=== PATIENT | male | born 1945 | race Caucasian/White ===

== ENCOUNTER 2019-10-19 08:15 | Outpatient (CLI) | payer MEDICARE, BC, OTHER, SELFPAY ==
--- NOTE | 2019-10-19 11:00 | NEURO_ITS ---
Patient Number: [id number] Impression: # Complains of numbness of hands and feet. # Right Carpal Tunnel Syndrome of moderate degree. # Left evolving Carpal Tunnel Syndrome. # Normal nerve conduction study of lower extremities. # Normal needle/EMG exam. Nerve Conduction Studies Anti Sensory Summary Table Stim Site NR Peak (ms) P-T Amp (?V) Site1 Site2 Delta-P (ms) Dist (cm) Rodriguez (m/s) Left Median Anti Sensory (2-3nd Digit) Wrist 3.3 27.7 Wrist 2-3nd Digit 3.3 14.0 42 Wrist 3.2 36.0 Wrist 2-3nd Digit 3.3 14.0 42 Right Median Anti Sensory (2-3nd Digit) Wrist 4.1 34.3 Wrist 2-3nd Digit 4.1 14.0 34 Wrist 4.6 11.6 Wrist 2-3nd Digit 4.1 14.0 34 Left Radial Anti Sensory (Base 1st Digit) Wrist 2.6 14.5 Wrist Base 1st Digit 2.6 0.0 Right Radial Anti Sensory (Base 1st Digit) Wrist 2.4 11.7 Wrist Base 1st Digit 2.4 0.0 Left Sup Fibular Anti Sensory (Ant Lat Mall) 14 cm 3.6 17.8 14 cm Ant Lat Mall 3.6 16.0 44 Right Sup Fibular Anti Sensory (Ant Lat Mall) 14 cm 3.2 11.4 14 cm Ant Lat Mall 3.2 16.0 50 Left Sural Anti Sensory (Lat Mall) Calf 3.8 30.4 Calf Lat Mall 3.8 16.0 42 Right Sural Anti Sensory (Lat Mall) Calf 3.5 10.6 Calf Lat Mall 3.5 16.0 46 Left Ulnar Anti Sensory (5th Digit) Wrist 2.5 22.5 Wrist 5th Digit 2.5 14.0 56 Right Ulnar Anti Sensory (5th Digit) Wrist 2.8 32.1 Wrist 5th Digit 2.8 14.0 50 Motor Summary Table Stim Site NR Onset (ms) O-P Amp (mV) Site1 Site2 Delta-0 (ms) Dist (cm) Rodriguez (m/s) Left Median Motor (Abd Poll Brev) Wrist 3.8 2.3 Elbow Wrist 5.7 29.0 51 Elbow 9.5 2.0 Right Median Motor (Abd Poll Brev) Wrist 5.5 0.4 Elbow Wrist 5.2 27.0 52 Elbow 10.7 1.0 Left Peroneal Motor (Vastus Med) Ankle 4.5 1.9 Popit Ankle 8.7 39.0 45 Popit 13.2 1.1 Right Peroneal Motor (Vastus Med) Ankle 4.4 1.7 Popit Ankle 8.5 40.0 47 Popit 12.9 1.5 Left Tibial Motor (Abd Starr Brev) Ankle 5.2 1.0 Knee Ankle 9.6 43.0 45 Knee 14.8 1.2 Right Tibial Motor (Abd Starr Brev) Ankle 5.0 2.3 Knee Ankle 10.2 46.0 45 Knee 15.2 1.2 Left Ulnar Motor (Abd Dig Minimi) Wrist 2.3 6.1 A Elbow Wrist 5.5 31.0 56 A Elbow 7.8 5.3 Right Ulnar Motor (Abd Dig Minimi) Wrist 3.0 4.9 A Elbow Wrist 5.1 29.0 57 A Elbow 8.1 3.4 F Wave Studies NR F-Lat (ms) L-R F-Lat (ms) Left Median (Mrkrs) (Abd Poll Brev) 32.62 2.23 Right Median (Mrkrs) (Abd Poll Brev) 34.85 2.23 Left Peroneal (Mrkrs) (EDB) 56.04 0.25 Right Peroneal (Mrkrs) (EDB) 55.79 0.25 Left Tibial (Mrkrs) (Abd Hallucis) 56.12 0.35 Right Tibial (Mrkrs) (Abd Hallucis) 56.47 0.35 Left Ulnar (Mrkrs) (Abd Dig Min) 33.07 0.07 Right Ulnar (Mrkrs) (Abd Dig Min) 33.14 0.07 EMG Side Muscle Nerve Root Ins Act Fibs Amp Dur Recrt Comment Right 1stDorInt Ulnar C8-T1 Nml Nml Nml Nml Nml Right Ext Indicis Radial (Post Int) C7-8 Nml Nml Nml Nml Nml Right Ext Digitorum Radial (Post Int) C7-8 Nml Nml Nml Nml Nml Right BrachioRad Radial C5-6 Nml Nml Nml Nml Nml Right PronatorTeres Median C6-7 Nml Nml Nml Nml Nml Right Abd Poll Brev Median C8-T1 Nml Nml Nml Nml Nml Right AntTibialis Dp Br Fi
== END 2019-10-19 08:16 | disposition home or self-care (01) ==
PROVIDERS: PCP Internal Medicine; Visit Provider Internal Medicine
DX: G56.03 Carpal tunnel syndrome, bilateral upper limbs (principal)
CPT/HCPCS: 95886; 95913

== ENCOUNTER 2020-01-23 00:22 | Outpatient (CLI) | payer MEDICARE, BC, OTHER, SELFPAY ==
[2020-01-23 19:58] LABS: SARS-CoV-2 RNA PCR Negative
== END 2020-01-23 00:23 | disposition home or self-care (01) ==
LOC: ANHCOVIDDT 00:24
PROVIDERS: PCP Internal Medicine; Visit Provider Plastic Surgery
DX: Z01.812 Encounter for preprocedural laboratory examination (principal); Z20.828 Contact with and (suspected) exposure to other viral communicable diseases
CPT/HCPCS: 87635; C9803; U0003

== ENCOUNTER 2020-01-25 02:35 | Day surgery (SDC) | payer MEDICARE, BC, OTHER, SELFPAY ==
[2020-01-13 12:50] VITALS: BMI 35.9
[2020-01-25] VITALS (7 sets, daily range): BP systolic 135–159; BP diastolic 59–71; PULSE 54–67; RESP 16; TEMP 36.5; O2SAT 95–98
--- NOTE | 2020-01-25 07:21 | WPDHPUPDATE1 ---
History and Physical Update Update Date/Time: 01/25/20 07:21 History and Physical has been reviewed, including an updated exam of the patient. There are NO changes in the patient's condition. Risks, benefits, and alternatives have been discussed and questions answered. Patient agrees to proceed with procedure.
[2020-01-25] MEDS: LIDO 1%/EPINEPHRINE 1:100,000 20 ML VIAL 10 ML INFILTRATE (08:59)
--- NOTE | 2020-01-25 09:47 | PM.OP ---
Procedure Note - Brief Procedure Note - Brief Date of procedure: 01/25/20 Pre-op diagnosis: Left Carpal Tunnel Syndrome Post-op diagnosis: same Procedure performed: L OCTR Anesthesia: local Surgeon: Stiven Gunderson MD Estimated blood loss (mL): 3 Tourniquet time (min): 0 Drains: No Packing: No Pathology: none sent Complications: No immediate complications Condition: stable Disposition: same day
--- NOTE | 2020-01-25 09:48 | PM.PROC ---
Procedure Note - Detailed Date of procedure: 01/25/20 Pre-op diagnosis: Left Carpal Tunnel Syndrome Post-op diagnosis: same Procedure performed: Left open carpal tunnel release Description of procedure: The left hand was marked in the holding area. The patient was taken to the operating room where he was placed supine on the operating table. A time-out was held and confirmed. The site was remarked and prepped and draped in usual fashion. He was locally infiltrated with 1% lidocaine with epinephrine. No tourniquet was used. The incision was made as marked and dissection was carried through the subcutaneous tissue to the palmar fascia. This and the carpal ligament were incised with a 15. Blade. Under 3 point retraction the ligament was divided distally and proximally to completely release it. There was no unusual anatomy noted. The wound was closed with interrupted 4-0 nylon suture. A small bandage was applied and he is discharged with instructions in wound care and follow-up has a prescription for hydrocodone 5/325 8. Surgeon: Stiven Gunderson MD Estimated blood loss (mL): 3 Tourniquet time (min): 0 Drains: No Packing: No Complications: No immediate complications Condition: stable Disposition: same day
== END 2020-01-25 10:28 | disposition home or self-care (01) ==
PROVIDERS: PCP Internal Medicine; Visit Provider Plastic Surgery
PROC: (CPT 64721; principal; 2020-01-25 09:00)
DX: G56.02 Carpal tunnel syndrome, left upper limb (principal)
CPT/HCPCS: 64721; A9270

== ENCOUNTER 2021-02-04 01:02 | Day surgery (SDC) | payer MEDICARE, BC, OTHER, SELFPAY ==
[2021-01-21 14:13] VITALS: BMI 34.7
--- NOTE | 2021-02-04 08:41 | WPDANESEPPF ---
Anes - Initial Pre Proc Eval Procedure: Operation Date: 02/04/21 11:30 Proposed Procedures p Screening Colonoscopy - Mick Head MD Date/Time: 02/04/21 08:41 Surgeon: Mick Head MD Pre Op Diagnosis: neoplasm screening Patient Data Age: 76 Gender: M Height: 1.78 m Weight: 110 kg Allergies Allergy/AdvReac Type Severity Reaction Status Date / Time No Known Allergies Allergy Verified 02/04/21 10:33 Home Medications Medication Instructions Recorded Confirmed Type cyanocobalamin (vitamin B-12) 1,000 mcg PO DAILY 08/16/19 02/04/21 History 1,000 mcg tablet nitroglycerin 400 mcg/spray 1 spray TRANSLINGU Q5M PRN 08/16/19 02/04/21 History translingual cyclosporine 0.05 % eye drops in a 1 drop EACH EYE Q12H #6 packet 09/15/19 02/04/21 Rx dropperette levothyroxine 50 mcg tablet 50 mcg PO DAILY #90 tablet 11/22/19 02/04/21 Rx aspirin 325 mg tablet 325 mg PO DAILY #90 tablet 01/16/20 02/04/21 Rx perindopril erbumine 8 mg tablet 8 mg PO DAILY #90 tablet 01/16/20 02/04/21 Rx hydrocodone-acetaminophen 1 tablet PO Q6H PRN #8 tablet 01/25/20 02/04/21 Rx memantine ER 28 mg-donepezil 10 mg 1 cap PO HS #90 ea 02/23/20 02/04/21 Rx capsule sprinkle,ext.release 24 hr triamcinolone acetonide 0.1 % 1 applic TOPICAL BID #80 g 03/26/20 02/04/21 Rx topical cream montelukast 10 mg tablet 10 mg PO DAILY #90 tablet 09/12/20 02/04/21 Rx testosterone 30 mg/actuation (1.5 2 pump TOPICAL DAILY #90 ml 10/29/20 02/04/21 Rx mL) transderm solution metered pump trazodone 100 mg tablet 50 mg PO HS #90 tablet 12/13/20 02/04/21 Rx ibuprofen 800 mg tablet 800 mg PO BID #180 tablet 12/28/20 02/04/21 Rx amlodipine 10 mg tablet 10 mg PO DAILY #90 tablet 01/14/21 02/04/21 Rx atorvastatin 20 mg PO DAILY 01/21/21 02/04/21 History Patient hx anesthesia problems: none Family hx anesthesia problems: none Results Review: All pre-operative results and documents have been reviewed as part of the pre-operative evaluation. [facility] Past Medical History Medical History (Updated 02/04/21 @ 08:43 by Martin Newton MD) Benign essential hypertension CAD in [place] artery Dementia, unspecified, without behavioral disturbance Hx of myocardial infarction Hypertensive heart disease without congestive heart failure Hypothyroidism (acquired) Mixed hyperlipidemia Primary osteoarthritis involving multiple joints Sleep apnea, unspecified Spinal stenosis, lumbar region with neurogenic claudication Surgical History Surgical History (Updated 02/04/21 @ 08:43 by Martin Newton MD) Coronary angioplasty status History of coronary artery stent placement Family History Family History Mother Hypertension Family history of diabetes mellitus in first degree relative Social History Social History Smoking packs per day: 3 Smoking cigarettes per day: 60.0 Years smoked: 25 Smoking pack-years: 75.00 Smoking status: Former smoker Tobacco type: cigarettes Second hand tobacco smoke exposure: No Smoking end date: 05/06/80 Alcohol intake: never Alcohol use details: ONE BEER PER MONTH Substance use: never Substance use type: does not use Living arrangements: with family Spiritual care concerns: No Anes - Eval Final PreProcedure Day of Procedure 02/04/21 08:41 Patient weight: obese Heart: regular rate and rhythm Lungs: clear to auscultation and normal air movement Airway: Mallampati scale class II Neurological: alert and oriented Last oral intake: >/= 8 hours ASA classification: III Emergent: no Anesthetic plan: proceed Anesthesia type and monitoring: general GIVS Results Review: All pre-operative results and documents have been reviewed as part of the pre-operative evaluation. Informed Consent: The patient's anesthetic plan and its attendant risks and benefits were discussed with the patie
[2021-02-04 10:34] VITALS: BP 152/83; PULSE 84; RESP 16; TEMP 36.3; O2SAT 95; BMI 32.1
[2021-02-04] MEDS: LACTATED RINGERS 1,000 ML 150 ML IV CONT (10:45)
--- NOTE | 2021-02-04 11:05 | PM.HPGS ---
History of Present Illness History of Present Illness Consent: Risks, benefits, and alternatives have been discussed and questions answered. Patient agrees to proceed with procedure. Chief complaint: neoplasm screening Narrative: Ramirez Charles is a 76 year old male referred for colon cancer screening. He has had polyps removed in the past Review of Systems Review of Systems: All systems reviewed & are unremarkable except as noted in HPI and below PMFSH Past Medical History Medical History Benign essential hypertension CAD in [place] artery Dementia, unspecified, without behavioral disturbance Hx of myocardial infarction Hypertensive heart disease without congestive heart failure Hypothyroidism (acquired) Mixed hyperlipidemia Primary osteoarthritis involving multiple joints Sleep apnea, unspecified Spinal stenosis, lumbar region with neurogenic claudication Surgical History Surgical History Coronary angioplasty status History of coronary artery stent placement Family History Family History Mother Hypertension Family history of diabetes mellitus in first degree relative Social History Social History Smoking packs per day: 3 Smoking cigarettes per day: 60.0 Years smoked: 25 Smoking pack-years: 75.00 Smoking status: Former smoker Tobacco type: cigarettes Second hand tobacco smoke exposure: No Smoking end date: 05/06/80 Alcohol intake: never Alcohol use details: ONE BEER PER MONTH Substance use: never Substance use type: does not use Living arrangements: with family Spiritual care concerns: No Meds Home Medications and Allergies Home Medications Medication Instructions Recorded Confirmed Type cyanocobalamin (vitamin B-12) 1,000 mcg PO DAILY 08/16/19 02/04/21 History 1,000 mcg tablet nitroglycerin 400 mcg/spray 1 spray TRANSLINGU Q5M PRN 08/16/19 02/04/21 History translingual cyclosporine 0.05 % eye drops in a 1 drop EACH EYE Q12H #6 packet 09/15/19 02/04/21 Rx dropperette levothyroxine 50 mcg tablet 50 mcg PO DAILY #90 tablet 11/22/19 02/04/21 Rx aspirin 325 mg tablet 325 mg PO DAILY #90 tablet 01/16/20 02/04/21 Rx perindopril erbumine 8 mg tablet 8 mg PO DAILY #90 tablet 01/16/20 02/04/21 Rx hydrocodone-acetaminophen 1 tablet PO Q6H PRN #8 tablet 01/25/20 02/04/21 Rx memantine ER 28 mg-donepezil 10 mg 1 cap PO HS #90 ea 02/23/20 02/04/21 Rx capsule sprinkle,ext.release 24 hr triamcinolone acetonide 0.1 % 1 applic TOPICAL BID #80 g 03/26/20 02/04/21 Rx topical cream montelukast 10 mg tablet 10 mg PO DAILY #90 tablet 09/12/20 02/04/21 Rx testosterone 30 mg/actuation (1.5 2 pump TOPICAL DAILY #90 ml 10/29/20 02/04/21 Rx mL) transderm solution metered pump trazodone 100 mg tablet 50 mg PO HS #90 tablet 12/13/20 02/04/21 Rx ibuprofen 800 mg tablet 800 mg PO BID #180 tablet 12/28/20 02/04/21 Rx amlodipine 10 mg tablet 10 mg PO DAILY #90 tablet 01/14/21 02/04/21 Rx atorvastatin 20 mg PO DAILY 01/21/21 02/04/21 History Allergies Allergy/AdvReac Type Severity Reaction Status Date / Time No Known Allergies Allergy Verified 02/04/21 10:33 Vital Signs Vital Signs - 24 hr 02/04/21 10:34 Temperature 36.3 C L Pulse Rate 84 Respiratory Rate 16 Blood Pressure 152/83 H Pulse Oximetry 95 Exam Resp: Auscultation: clear to auscultation bilaterally Cardio: Rate: regular rate Rhythm: regular rhythm GI: GI Palp: Yes Soft to palpation and No Tenderness to palpation present (GI) Assessment and Plan Assessment and plan (1) Colon cancer screening: Code(s): Z12.11 - Encounter for screening for malignant neoplasm of colon Status: Acute Assessment and Plan: Colonoscopy with possible biopsy or polypectomy or cautery o
[2021-02-04] MEDS: SIMETHICONE ORAL SUSPENSION 20 MG/0.3 ML 30 ML BOTTLE 0.6 ML IRRIGATION (11:21)
[2021-02-04 11:35] VITALS: BP 97/54; PULSE 59; RESP 16; O2SAT 94
[2021-02-04 11:45] VITALS: BP 104/50; PULSE 63; RESP 16; O2SAT 93
[2021-02-04 11:55] VITALS: BP 121/73; PULSE 72; RESP 17; O2SAT 95
== END 2021-02-04 12:20 | disposition home or self-care (01) ==
PROVIDERS: PCP Internal Medicine; Visit Provider Internal Medicine Gastroenterology
PROC: 0DJD8ZZ Inspection of Lower Intestinal Tract, Via Natural or Artificial Opening Endoscopic (ICD-10-PCS; CPT 45378; principal; 2021-02-04 11:30)
DX: Z12.11 Encounter for screening for malignant neoplasm of colon (principal); D12.0 Benign neoplasm of cecum; I11.0 Hypertensive heart disease with heart failure; I50.9 Heart failure, unspecified; F03.90 Unspecified dementia, unspecified severity, without behavioral disturbance, psychotic disturbance, mood disturbance, and anxiety; I25.10 Atherosclerotic heart disease of native coronary artery without angina pectoris; E03.9 Hypothyroidism, unspecified; E78.2 Mixed hyperlipidemia; G47.30 Sleep apnea, unspecified; M48.062 Spinal stenosis, lumbar region with neurogenic claudication; Z95.5 Presence of coronary angioplasty implant and graft; Z87.891 Personal history of nicotine dependence; E66.9 Obesity, unspecified; Z68.32 Body mass index [BMI] 32.0-32.9, adult; Z79.82 Long term (current) use of aspirin; Z79.890 Hormone replacement therapy; Z79.891 Long term (current) use of opiate analgesic
CPT/HCPCS: 45385; 88305; J2704; J7120

== ENCOUNTER 2022-01-02 15:20 | Outpatient (RCR) | payer MEDICARE, BC, OTHER, SELFPAY ==
[2022-01-06 16:42] LABS: Testosterone Total 455 ng/dL (250-1100)
== END 2022-04-02 23:59 | disposition home or self-care (01) ==
LOC: ANHGOSHLAB 15:20
PROVIDERS: PCP Family Medicine; Visit Provider Family Medicine
DX: E03.9 Hypothyroidism, unspecified (principal); E29.1 Testicular hypofunction
CPT/HCPCS: 36415; 84402; 84403; 84443

== ENCOUNTER → 2022-07-10 14:59 | Outpatient (CLI) | payer MEDICARE, BC, SELFPAY ==
--- NOTE | ~2022-07-10 | XR_ITS ---
XR lumbar spine min 4V DATE: 07/10/2022 15:14 INDICATION: Low back pain for several years. No injury. TECHNIQUE: AP, lateral, bilateral oblique views, coned lateral lumbosacral view COMPARISON: May 10, 2011 MRI lumbar spine FINDINGS: There is mild levoscoliosis. There is degenerative spurring of the lower thoracic spine. There is degenerative spurring throughout the lumbar and lumbosacral spine, with moderate loss of int erspace height at L2-3 and more severe loss of interspace height at L4-5 and L5-S1. There is prominent degenerative change at the apophyseal joints particularly the lower lumbosacral ar ea with associated grade 1 anterolisthesis at L4-5. No fracture or bone destruction is evident. The included lower thoracic and lumbar pedicles are intac t. The sacroiliac joints are intact. IMPRESSION: Mild levoscoliosis Multilevel degenerative disc disease, greatest at L4-5 and L5-S1 Minimal grade 1 anterolisthesis at L4-5 due to degenerative change at the apophyseal joints Reviewed, dictated and finalized at location L. IMPRESSION: Mild levoscoliosis Multilevel degenerative disc disease, greatest at L4-5 and L5-S1 Minimal grade 1 anterolisthesis at L4-5 due to degenerative change at the apoph yseal joints
== END ==
PROVIDERS: PCP Family Medicine; Visit Provider Family Medicine
DX: M51.37 Other intervertebral disc degeneration, lumbosacral region (principal); M47.816 Spondylosis without myelopathy or radiculopathy, lumbar region
CPT/HCPCS: 72110

== ENCOUNTER 2024-06-22 00:39 | Day surgery (SDC) | payer MEDICARE, BC, OTHER, SELFPAY ==
[2024-06-13 12:17] VITALS: BMI 33.2
--- OUTSIDE RECORDS SUMMARY | 2024-06-22 00:43 | XMS_ITS | Clinical Summary ---
Author Organization [facility] Address [address], [address] [address] Phone Care Team Providers Care Works Manager Name Role Phone Gilbert Carreno DO Unavailable [phone] Allergies No known active allergies Medications testosterone (ANDROGEL) 25 MG/2.5GM (1%) Gel Apply daily. Active aspirin 325 MG Tablet Take 325 mg by mouth daily. Active celecoxib (CELEBREX) 200 MG Capsule Take 200 mg by mouth daily. Active [place]-3 Fatty Acids (OMEGA-3 FISH OIL) 1000 MG Capsule Take by mouth. Take 4 capsules by mouth once daily Active metFORMIN (GLUCOPHAGE) 1000 MG Tablet Take 1,000 mg by mouth daily. Active montelukast (SINGULAIR) 10 MG Tablet Take 10 mg by mouth daily. Active nitroGLYCERIN (NITROLINGUAL) 0.4 MG/SPRAY Solution Take 1 [place] by mouth as needed. Active perindopril (ACEON) 4 MG Tablet Take 4 mg by mouth daily. Active Niacin-Simvasta tin 1000-20 MG TABLET SR 24 HR Take by mouth. Active levothyroxine (SYNTHROID) 50 MCG Tablet Take 50 mcg by mouth daily. Active metoprolol Succinate (TOPROL-XL) 100 MG TABLET SR 24 HR Take 100 mg by mouth daily. Active traZODone (DESYREL) 100 MG Tablet Take 100 mg by mouth nightly. Active acetaminophen (TYLENOL) 500 MG Tablet Take 500 mg by mouth every 4 hours as needed for Pain. Active vitamin b-12 (CYANOCOBALAMIN ) 100 MCG Tablet Take 100 mcg by mouth daily. Active Cholecalciferol (VITAMIN D3 PO) Take by mouth. Active Immunizations Immunization Administration Dates Next Due Covid-19, Mrna, Lnp-s, Pf, 30 Mcg/0.3 Ml Dose (P fizer) 06/22/2020,06/01/2020 Family History Medical History Relation Name Comments Cancer Brother Cancer Father Cancer Mother Diabetes Mother Relation Name Status Comments Brother Father Mother Social History Tobacco Use Types Packs/Day Years Used Date Smoking Tobacco: Former Cigarettes 3 30 0 03/30/1950 - 03/30/1980 Comments:quit 1980 Alcohol Use Standard Drinks/Week Comments Yes 0 (1 standard drink = 0.6 oz pur e alcohol) Sex and Gender Information Value Date Recorded Sex Assigned at Not on file Legal Sex Male 10:14 AM CDT Gender Identity Not on file Sexual Orientation Not on file Occupation Industry Job Start Date Job End Date [employer] Not on file Not on file Not on kelly e Last Filed Vital Signs Vital Sign Reading Time Taken Comments Blood Pressure 160/80 12/13/2015 12:49 PM CDT Pulse 52 12/13/2015 12:49 PM CDT Temperature 36.2 C (97.1 F) 12/13/2015 12:49 PM CDT Respiratory Rate 14 12/13/2015 12:4 9 PM CDT Oxygen Saturation 96% 12/13/2015 12: 49 PM CDT Inhaled Oxygen Concentration - - Weight 107.6 kg (237 lb 3.2 oz) 016 12:49 PM CDT Height 177.8 cm (5' 10 ) 12/13/2015 12: 49 PM CDT Body Mass Index 34.03 12/13/2015 12:49 PM CDT Plan of Treatment Health Maintenance Due Date Last Done Comments Hepatitis C Virus (HCV) Screening 1945 TdaP Immunization 1945 Zoster Immunization (1 of 2) 1993 Respiratory Syncytial Virus (RSV) Immunization (Adult) (1 - 1-dose 75+ series) 2018 Influenza Immunization (#1) 11/22/202309/2019, 01/21/2019, 01/01/2018, Additional history exists SARS-COV-2 Immunization ( season) 2023 02/08/2021, 06/22/2020, 06/01/2020 Pneumococcal Immunization (50+ years) Completed 12/28/2019, 01/21/2017 Pneumococcal Immunization Combined Discontinued 12/28/2019, 01/21/2017 Hepatitis B Immunization Aged Out No longer eligible based on patient's age to complete this topic Meningococcal Immunization (ACWY) Aged Out No longer eligible based on patient's age to complete this topic Rotavirus Immunization Aged Out No lo nger eligible based on patient's age to complete this topic Insurance MEDICARE [facility] Care Teams Works Manager Relationship Specialty Start Date End Date Gilbert Carreno DO Gastroenterology 09/26/15
--- OUTSIDE RECORDS SUMMARY | 2024-06-22 00:43 | XMS_ITS | Encounter Summary ---
Author Organization [facility] Address [facility] [place] [address] Care Team Providers Care Store Manager Name Role Phone Chema Woodruff MD Unavailable [phone] Alok Miller MD Primary Care Provider [facility] Wilfredo Avila MD Primary Care Provider [phone] Fredi Soliman MD Primary Care Provider [phone] Encounter Details Date Type Department Care Team (Latest Contact Info) Description 01/26/[address] [facility] Dorina Pollock MD Social History Tobacco Use Types Packs/Day Years Used Date Smoking Tobacco: Former Cigarettes Smokeless Tobacco: Never Comments:quit in 1980 Alcohol Use Standard Drinks/Week Comments No 0 (1 standard drink = 0.6 oz pur e alcohol) Sex and Gender Information Value Date Recorded Sex Assigned at Not on file Legal Sex Male 2:50 AM CDT Gender Identity Not on file Sexual Orientation Not on file Occupation Industry Job Start Date Job End Date Not on file Not on file Not on file Not on file Not on file Not on file Not on file Not on file documented as of this encounter Plan of Treatment Upcoming Encounters Date Type Department Care Team (Late st Contact Info) Description 06/27/2024 11:45 AM CDT [facility] [address] [place] [id number] Chema Woodruff MD [facility]. [place] [address] [place] [address] documented as of this encounter Visit Diagnoses Not on filedocumented in this encounter Care Teams Store Manager Relationship Specialty Start Date End Date Alok Miller MD [address] [address] PCP - General INTERNAL MEDICINE 08/22/15 03/24/18 Wilfredo Avila MD [address] [address] PCP - General INTERNAL MEDICINE 03/25/18 08/17/19 Fredi Soliman MD [address] [place] [address] PCP - General INTERNAL MEDICINE 08/18/19 11/20/21 Chema Woodruff MD [address] [address] Jeffery Wood Hacker CARDIOVASCULAR DISEASE 08/22/15 documented as of this encounter
--- OUTSIDE RECORDS SUMMARY | 2024-06-22 00:43 | XMS_ITS | Continuity of Care Document ---
Author Organization [facility] Address [address] [place] [address] [address] [place] [address] Phone Care Team Providers Care Ammunition Specialist Name Role Phone Alexis Ng PT Unavailable Unavailable Procedures Procedure Date Therapeutic Activities Neuromuscular Re-Ed Manual Therapy Hot or Cold Pack Therapeutic Activities Neuromuscular Re-Ed Manual Therapy Hot or Cold Pack Therapeutic Activities Neuromuscular Re-Ed Manual Therapy Hot or Cold Pack Progress Note Therapeutic Activities Neuromuscular Re-Ed Manual Therapy Hot or Cold Pack Therapeutic Activities Neuromuscular Re-Ed Manual Therapy Hot or Cold Pack Therapeutic Activities Neuromuscular Re-Ed Manual Therapy Hot or Cold Pack Progress Note Therapeutic Activities Neuromuscular Re-Ed Manual Therapy Hot or Cold Pack Therapeutic Activities Neuromuscular Re-Ed Manual Therapy Hot or Cold Pack Therapeutic Activities Neuromuscular Re-Ed Manual Therapy Hot or Cold Pack Therapeutic Activities Neuromuscular Re-Ed Manual Therapy Hot or Cold Pack Therapeutic Activities Neuromuscular Re-Ed Manual Therapy Hot or Cold Pack Therapeutic Activities Neuromuscular Re-Ed Manual Therapy Hot or Cold Pack Therapeutic Activities Neuromuscular Re-Ed Manual Therapy Hot or Cold Pack Therapeutic Activities Neuromuscular Re-Ed Manual Therapy Hot or Cold Pack Therapeutic Activities Neuromuscular Re-Ed Manual Therapy Hot or Cold Pack Progress Note Therapeutic Activities Neuromuscular Re-Ed Manual Therapy Hot or Cold Pack Therapeutic Activities Neuromuscular Re-Ed Manual Therapy Hot or Cold Pack Therapeutic Activities Neuromuscular Re-Ed Manual Therapy Hot or Cold Pack Therapeutic Activities Neuromuscular Re-Ed Manual Therapy Hot or Cold Pack Electrical Stimulation Therapeutic Activities Neuromuscular Re-Ed Manual Therapy Hot or Cold Pack Therapeutic Activities Neuromuscular Re-Ed Manual Therapy Hot or Cold Pack Therapeutic Activities Neuromuscular Re-Ed Manual Therapy Hot or Cold Pack Therapeutic Activities Neuromuscular Re-Ed Manual Therapy Hot or Cold Pack Therapeutic Activities Neuromuscular Re-Ed Manual Therapy Hot or Cold Pack Doc neg elder mal no plan PT Evaluation Low Complexity Therapeutic Activities Neuromuscular Re-Ed Therapeutic Activities Therapeutic Exercise Therapeutic Activities Therapeutic Exercise Progress Note Therapeutic Activities Therapeutic Exercise Therapeutic Activities Therapeutic Exercise Therapeutic Activities Therapeutic Exercise Therapeutic Exercise Therapeutic Activities Therapeutic Activities Therapeutic Exercise Therapeutic Activities Therapeutic Exercise Therapeutic Activities Therapeutic Exercise Therapeutic Activities Therapeutic Exercise Therapeutic Activities Therapeutic Exercise Neuromuscular Re-Ed Doc neg elder mal no plan PT Evaluation Moderate Complexity Therapeutic Activities Advance Directives Directive Yes / No Effective Date File Name No Information Encounters Encounter Description Practice Location Reason(s) For Visit Diagnoses Date Provider Providers Copied on Encounter [facility], [id number], tel:[phone] [facility] No Information Berenice Espinoza. . Referring Provider: Grey Johnston, [address] [facility], [place], [address]. tel:[phone] [facility] [place] [place] [address], [place], [place], [id number], tel:[phone] [facility] No Information Berenice Espinoza. . Referring Provider: Grey Johnston [address] [place] [address], [address]. tel:[phone] [place] [address] [place] [address], [place], [place], [id number], tel:[phone] [facility] No Information Berenice Espinoza. . Referring Provider: Grey Johnston, [address] [place] [address], [address]. tel:[phone] [place] [address] [place] [address], [place], [place], [id number], [place] tel:[phone] [facility] No Information Berenice Espinoza. . Referring Provider: Grey Johnston, [address] [place] [address], [address]. tel:[phone] [place] [address] [place] [address], [place], [place], [id number], [place] tel:[phone] [facility] No Information Berenice Espinoza. . Referring Provider: Grey Johnston, [address] [place] [address], [address]. tel:[phone] [place] [address] [place] [address], [place], [place], [id number], [place] tel:[phone] [facility] No Information Berenice Espinoza. . Referring Provider: Grey Johnston [address] [place] [address], [address]. tel:[phone] [place] [address] [address] [address], [place], [place], [id number], [place] tel:[phone] [facility] No Information Berenice Espinoza. . Referring Provider: Grey Johnston [address] [place] [address], [address]. tel:[phone] [place] [address], [address] [facility] 300, [place], [place], [id number], [place] tel:[phone] [facility] No Information Berenice Espinoza. . Referring Provider: Grey Johnston, [address] [place] [address], [address]. tel:[phone] [place] [address] [address] [facility], [place], [id number], [place] tel:[phone] [facility] No Information Berenice Alexis. . Referring Provider: Grey Johnston, [address] [place] [address], [address]. tel:[phone] [place] [address] [address] [facility], [place], [address], [place] tel:[phone] [facility] No Information Berenice Alexis. . Referring Provider: Grey Johnston, [address] [place] [address], [address]. tel:[phone] [place] [address] [address] [address], [place], [place], [address], [place] tel:[phone] [facility] No Information Berenice Alexis. . Referring Provider: Grey Johnston [address] [place] [address], [address]. tel:[phone] [place] [address] [address] [address], [place], [place], [id number], [place] tel:[phone] [facility] No Information Berenice Espinoza. . Referring Provider: Grey Johnston [address] [place] [address], [address]. tel:[phone] [place] [address] [address] [facility], [place], [address], [place] tel:[phone] [facility] No Information Berenice Espinoza. . Referring Provider: Grey Johnston, [address] [place] [address], [address]. tel:[phone] [place] [address] [address] [facility], [place], [id number], [place] tel:[phone] [facility] No Information Berenice Alexis. . Referring Provider: Grey Johnston, [address] [place] [address], [address]. tel:[phone] [place] [address] [facility], [place], [place], [id number], tel:[phone] [facility] No Information Berenice Alexis. . Referring Provider: Grey Johnston, [address] [place] [address], [address]. tel:[phone] [place] [address] [address] [facility], [place], [address], [place] tel:[phone] [facility] No Information Berenice Alexis. . Referring Provider: Grey Johnston [address] [place] [address], [address]. tel:[phone] [place] [address] [address] [address], [place], [place], [address], [place] tel:[phone] [facility] No Information Berenice Alexis. . Referring Provider: Grey Johnston [address] [place] [address], [address]. tel:[phone] [place] [address] [address] [address], [place], [address], [place] tel:[phone] [facility] No Information Berenice Espinoza. . Referring Provider: Grey Johnston [address] [place] [address], [address]. tel:[phone] [place] [address] [address] [facility], [place], [address], [place] tel:[phone] [facility] No Information Berenice Espinoza. . Referring Provider: Grey Johnston [address] [place] [address], [address]. tel:[phone] [place] [address] [place] [address], [place], [place], [address], [place] tel:[phone] [facility] No Information Berenice Alexis. . Referring Provider: Grey Johnston [address] [place] [address], [address]. tel:[phone] [place] [address] [address] [facility], [place], [place], [address], tel:[phone] [facility] No Information Berenice Alexis. . Referring Provider: Grey Johnston, [address] [place] [address], [address]. tel:[phone] [place] [address] [address] [address], [place], [place], [address], [place] tel:[phone] [facility] No Information Berenice Alexis. . Referring Provider: Grey Johnston, [address] [place] [address], [address]. tel:[phone] [place] [address] [address] [address], [place], [place], [address], [place] tel:[phone] [facility] No Information Berenice Alexis. . Referring Provider: Grey Johnston [address] [place] [address], [address]. tel:[phone] [place] [address] [address] [address], [place], [place], [id number], [place] tel:[phone] [facility] No Information Berenice Alexis. . Referring Provider: Grey Johnston [address] [place] [address], [address]. tel:[phone] [place] [address] [address] [facility] 300, [place], [id number], [place] tel:[phone] [facility] No Information Berenice Alexis. . Referring Provider: Grey Johnston [address] [place] [address], [address]. tel:[phone] [place], [place] [address] [place] [address], [place], [place], [address], [place] tel:[phone] [facility] No Information Makler Luke. . [facility], [place], [place], [address], [place] tel:[phone] [facility] No Information Makler Luke. . [facility], [place], [address], [place] tel:[phone] [facility] No Information Makler Luke. . [facility], [place], [place], [address], [place] tel:[phone] [facility] No Information Makler Luke. . [facility], [place], [place], [address], [place] tel:[phone] [facility] No Information Makler Luke. . [facility], [place], [place], [address], [place] tel:[phone] [facility] No Information Makler Luke. . [facility], [place], [address], [place] tel:[phone] [facility] No Information Makler Luke. . [facility], [place], [place], [address], [place] tel:[phone] [facility] No Information Makler Luke. . [facility], [place], [place], [address], [place] tel:[phone] [facility] No Information Makler Luke. . [facility], [place], [place], [address], [place] tel:[phone] [facility] No Information Aj Hernandez. . [facility], [place], [place], [address], tel:[phone] [facility] No Information Aj Hernandez. . [facility], [place], [place], [address], tel:[phone] [facility] No Information Aj Hernandez. . Family History Family Member Type Diagnosis Age At Onset No Information Payers Payer name Insurance type Covered constitution party ID Authoriza tiyolanda(s) Medicare [place] [id number] [facility] [id number] For Life Medicare Se condary Only CI [id number] Social History Type Description Quantity Date Captured Comments Sex Male Smoking Status No Information Chief Complaint And Reason For Visit No Information Reason For Referral Reason For Referral No Information History Of Present Illness Encounter Date Complaint History Of Prese nt Illness No Information Functional Status Date Functional Assessmen t No Information Instructions Date Instruction Additional Infor mation Giving encouragement to exercise Related to Overweight Giving encouragement to exercise Related to Overweight Giving encouragement to exercise Related to Overweight Giving encouragement to exercise Related to Overweight Assessments Type Assessment Date No Information Patient Care Teams Name Effective Dates (start - stop) Status Members No Information
--- OUTSIDE RECORDS SUMMARY | 2024-06-22 00:43 | XMS_ITS | Encounter Summary ---
Author Organization [facility] Address [address] [place] [address] Care Team Providers Care Nursery Teacher Name Role Phone Chema Woodruff MD Unavailable [phone] Alok Miller MD Primary Care Provider Unava [facility] Wilfredo Avila MD Primary Care Provider [phone] Fredi Soliman MD Primary Care Provider [phone] Encounter Details Date Type Department Care Team (Late st Contact Info) Description 10/13/2017 Abstract [facility] at [address] [address] Donna Servin MA Social History Tobacco Use Types Packs/Day Years [...] on file documented as of this encounter Progress Notes * IVETTE Rose - 10/16/2017 1:13 PM CDT Labs from 5 months ago reviewed. No immediate action needed documented in this encounter Plan of Treatment Upcoming Encounters Date Type Department Care Team (Late st Contact Info) Description 06/27/2024 11:45 AM CDT Office Visit [facility] [address] [place] [address] Chema Woodruff MD [facility] [address] [address] [place] [address] documented as of this encounter Procedures Procedure Name Priority Date/Time Associated Diagnosis Comments CBC (OUTSIDE LAB) Routine 05/19/2017 AST/SGOT Routine 05/19/2017 BASIC METABOLIC PANEL Routine 05/19/2017 LIPID PANEL Routine 05/19/2017 HEMOGLOBIN, GLYCOSYLATED Routine 05/19/2017 THYROXINE, FREE (FT4) Routine 05/19/2017 THYROID STIM HORMONE TSH Routine 05/19/2017 VITAMIN D, 25 OH Routine 05/19/2017 MAGNESIUM Routine 05/19/2017 ALT/SGPT Routine 05/19/2017 documented in this encounter Results * VITAMIN D, 25 OH (05/19/2017) VITAMIN D 25 HYDROXY S/P/B 44 05/19/2017 us Doc [facility] Final Result * THYROID STIM HORMONE, TSH (05/19/2017) TSH 1.25 05/19/2017 us Doc [facility] Final Result * THYROXINE, FREE (FT4) (05/19/2017) FREE T4 0.82 05/19/2017 us Doc [facility] Final Result * LIPID PANEL (05/19/2017) CHOLESTEROL 141 HDL 39 TRIGLYCERIDES 237 LDL (CALCULATED) 54.6 05/19/2017 us Doc [facility] Final Result * MAGNESIUM (05/19/2017) MAGNESIUM 1.8 05/19/2017 us Doc [facility] Final Result * HEMOGLOBIN, GLYCOSYLATED (05/19/2017) Pathologist [facility] HGB A1C 5.4 05/19/2017 us Doc [facility] Final Result * ALT/SGPT (05/19/2017) ALT 26 05/19/2017 us Doc [facility] Final Result * AST/SGOT (05/19/2017) Pathologist [facility] AST 18 05/19/2017 us Doc [facility] Edited Resul t - Final * BASIC METABOLIC PANEL (05/19/2017) Pathologist [facility] SODIUM S/P/B 140 POTASSIUM S/P/B 4.6 CO2 28 CHLORIDE S/P/B 104 GLUCOSE 103 mg/dL CALCIUM S/P/B 9.6 BUN 21 CREATININE S/P/B 0.82 0.7 - 1.3 EGFR NON-AFR. AMER. >60 <=90 05/19/2017 us Doc [facility] Final Result * CBC (OUTSIDE LAB) (05/19/2017) WBC 4.9 HGB 15.9 HCT 46.5 PLT 178 05/19/2017 us Doc [facility] Abstract LAB-OUTSIDE/ABSTRACTED Final Result documented in this encounter Visit Diagnoses Not on filedocumented in this encounter Care Teams Nursery Teacher Relationship Specialty Start Date End Date Alok Miller MD [address] [address] PCP - General INTERNAL MEDICINE 08/22/15 03/24/18 Wilfredo Avila MD [address] [address] PCP - General INTERNAL MEDICINE 03/25/18 08/17/19 Fredi Soliman MD [address] [place] [id number] PCP - General INTERNAL MEDICINE 08/18/19 11/20/21 Chema Woodruff MD [address] [address] [place] [employer] Assistant CARDIOVASCULAR DISEASE 08/22/15 documented as of this encounter
--- OUTSIDE RECORDS SUMMARY | 2024-06-22 00:43 | XMS_ITS | Continuity of Care Document ---
Author Name [facility] Organization [facility] Care Team Providers Care Rn Lab Name Role Phone [facility] Unavailable Unavailable Medications Combined list of outpatient medications from Department of Defense and Veterans Affairs facilities.Medications provided include 1) outpatient medications from the last 15 months, and 2) patient-reported medications. Medication Details Route Status Patient Instructions Prescription Expires Prescription Number Last Dispense Date Ordering Provider Order Date Order Qty Source ibuprofen 800 mg tablet 800 mg, Oral, BID, # 180 EA, 1 total refill(s ), Hard Stop Oral (given by mouth) Discont inued 10/27/2023 4 2023 180.0 Ambulat ory Pharmac y ibuprofen 800 mg tablet 800 mg, Oral, BID, # 180 EA, 1 total refill(s ), Hard Stop Oral (given by mouth) Ordered 10/25/2024 4 2023 180.0 Ambulat ory Pharmac y ibuprofen 800 mg tablet 800 mg, Oral, BID, # 180 EA, 1 total refill(s ), Hard Stop Oral (given by mouth) Complet ed 09/04/2023 3 2023 180.0 Ambulat ory Pharmac y montelukast 10 mg tablet See Instruct ions, # 90 EA, 1 total refill(s ), Hard Stop Complet ed 05/17/2024 4 2024 90.0 Ambulat ory Pharmac y montelukast 10 mg tablet 10 mg, Oral, Daily, # 90 EA, 1 total refill(s ), Hard Stop Oral (given by mouth) Complet ed 10/15/2023 3 2023 90.0 Ambulat ory Pharmac y traZODone 100 mg tablet 100 mg, See Instruct ions, 0, 0, # 45 EA, 1 total refill(s ), Hard Stop Complet ed 10/15/2023 3 2023 45.0 Ambulat ory Pharmac y traZODone 100 mg tablet See Instruct ions, 0, # 45 EA, 1 total refill(s ), Hard Stop Complet ed 05/17/2024 4 2024 45.0 Ambulat ory Pharmac y Xiidra 5% eye drops UD [60EA] See Instruct ions, # 180 EA, 3 total refill(s ), Hard Stop Complet ed 03/08/2024 4 2023 180.0 Ambulat ory Pharmac y Xiidra 5% eye drops UD [60EA] See dose instruct ions in comments , # 180 EA, 2 total refill(s ), Acute Complet ed 02/23/2023 3 2022 180.0 Ambulat ory Pharmac y Allergies, Adverse Reactions, Alerts Combined list of allergies from Department of Defense and Veterans Affairs facilities. It does not include entries that were removed or entered in error. Substance Category Reaction Severity Reaction type Status Date Reported Comments Source NO KNOWN ALLERGIES Propensity to adverse reactions to drug Active Unknown Organization Immunizations Combined list of available immunizations from the Department of Defense and Veterans Affairs facilities. Immunization Series Date Given Administered By Site Reaction Lot Number CVX Code Drug Dining Manager Status Comments Source influenza, seasonal, injectable-pf 2010 zzRig Arm [id number] sanofi pasteur complet ed influenza , seasonal, injectabl e-pf 01/01/11 Given Ambulat ory Pharmac y influenza virus vaccine,split 2006 zzRig ht Arm [id number] GlaxoSmithK[employer] ne complet ed influenza virus vaccine,s plit 02/17/07 Given Ambulat ory Pharmac y influenza virus vaccine,split 2004 zzRig ht Arm [id number] 15 sanofi pasteur complet ed influenza virus vaccine,s plit 02/20/05 Given Ambulat ory Pharmac y influenza virus vaccine, whole virus 2002 zzLef t Arm 16 complet ed influenza virus vaccine, whole virus 01/23/03 Given Ambulat ory Pharmac y pneumococcal polysaccharid e, 23 valent 2001 zzLef t Arm [id number] [employer] complet ed pneumococ ishaan polysacch aride, 23 valent 04/23/01 Given Ambulat ory Pharmac y Procedures Combined list of: 1) Procedures from Department of Veterans Affairs facilities going back up to thelast 18 months, not all [place] non-surgical procedures are included; 2) All procedures from the Department of [facility] facilities. Procedure Procedure Type Code Date Perfomer Comments Sourc e No data available for this section Ambulatory P harmacy Assessment and Plan Combined list of future care activities from Department of Defense and [facility] facilities (e.g., assessment and plan notes, appointments, orders, and referrals). Additional future care activities may be listed in the Plan of Care section. Result Assessment and Plan Date Source Assessment and Plan No data available for this section 06/22/2024 Ambulatory Pharmacy Functional Status Combined list of recent functional and cognitive assessments recorded at [facility] ([place] Functional [place] Measurement (FIM) Scale: 1 = Total Assistance (Subject = 0% +), 2 = Maximal Assistance (Subject = 25% +), 3 = Moderate Assistance (Subject = 50% +), 4 = Minimal Assistance (Subject = 75% +), 5 = Supervision, 6 = Modified [place] (Device), 7 = Complete [place] (Timely, Safely). Assessment Date/Time Source Assessment Type Assessment Skill Assessment Score Assessment Details No data available for this section
--- OUTSIDE RECORDS SUMMARY | 2024-06-22 00:43 | XMS_ITS | Clinical Summary ---
Author Organization [facility] Address [address] [place] [address] Care Team Providers Care Household Appliances Service Technician Name Role Phone Chema Woodruff MD Unavailable [phone] Allergies No known active allergies Medications Cholecalciferol 50 MCG (1999 UT) Tab Take 1.5 tablets by mouth daily. 8 Active ketoconazole 2 % shampoo as needed. 5 8 Active triamcinolone 0.1 % cream Use as directed 1 9 Active trazodone 100 MG tabletIndication s:Insomnia, unspecified type Take 1 tablet (100 mg total) by mouth nightly at bedtime. 90 tablet 1 9 Active Additional Information Patient taking differently: 50 mgOral Nightly at bedtime, Reported on 06/16/2022 AMLODIPINE 10 MG tablet TAKE ONE TABLET BY MOUTH DAILY 90 tablet 1 9 Active PERINDOPRIL ERBUMINE 8 MG TabIndications:E ssential hypertension TAKE 1 TABLET BY MOUTH DAILY 90 tablet 1 0 Active LEVOTHYROXINE 50 MCG tabletIndication s:Hypothyroidism , unspecified type TAKE 1 TABLET(50 MCG) BY MOUTH DAILY 90 tablet 1 0 Active montelukast 10 MG tabletIndication s:Allergic rhinitis, unspecified seasonality, unspecified trigger Take 1 tablet (10 mg total) by mouth daily. 90 tablet 1 0 Active aspirin EC (SOBA ENTERIC COATED ASPIRIN) 325 MG Tab EC tabletIndication s:Coronary artery disease involving [place] coronary artery of [place] heart without angina pectoris Take 1 tablet (325 mg total) by mouth daily. 90 tablet 1 0 Active celecoxib (CELEBREX) 200 MG capsuleIndicatio ns:Arthritis Take 1 capsule (200 mg total) by mouth daily. 90 capsule 1 0 Active Testosterone 30 MG/ACT SolutionIndicati ons:Low testosterone APPLY 2 PUMP BY TOPICAL ROUTE QAM TO EACH UNDERARM FOR A TOTAL DOSE OF 60 MG 90 mL 5 0 Active NAMZARIC 28-10 MG CAPSULE SR 24 HRIndications:Im paired memory TAKE 1 CAPSULE BY MOUTH EVERY NIGHT AT BEDTIME 90 capsule 1 0 Active metoprolol succinate ER 25 MG 24 hr tablet Take 1 tablet (25 mg total) by mouth daily. 90 tablet 1 0 Active atorvastatin 40 MG tabletIndication s:Dyslipidemia Take 1 tablet (40 mg total) by mouth nightly at bedtime. 90 tablet 2 1 Active lifitegrast (XIIDRA) 5 % ophthalmic solution Place 1 drop into both eyes 2 (two) times daily. Active nitroglycerin 0.4 MG/SPRAY spray PLACE 1 SPRAY UNDER TONGUE EVERY 5 MINUTES NEEDED FOR CHEST PAIN IF TAKING 3RD SPRAY CALL 911 12 g 1 2 Active ibuprofen (MOTRIN) 800 MG tablet Take 1 tablet (800 mg total) by mouth 2 (two) times a day. 2 Active Active Problems Problem Noted Date Diagnosed Date Erectile dysfunction, unspecified erectile dysfu nction type 06/03/2018 Allergic rhinitis 12/29/2017 Arthritis 12/29/2017 Overview (02/05/2018): Annotation - [id number]: 2010 Assessment & Plan (06/05/2018 11:25 AM CDT): Patient continues on Celebrex, in addition to full strength aspirin daily reported history of vascular disease. Continue to monitor closely. BMI 33.0-33.9,adult 12/29/2017 Medication management 12/29/2017 Assessment & Plan (11/05/2018 2:09 PM CDT): Repeat lab work in 6 months. Assessment & Plan (06/05/2018 11:29 AM CDT): Check CMP today for medication monitoring. Impaired memory 12/29/2017 Insomnia 12/29/2017 Low testosterone 12/29/2017 Assessment & Plan (11/05/2018 2:08 PM CDT): Review of [place] prescription monitoring program website indicates the last 3 refills were prescribed by patient's previous provider-apparently he had some existing refills, so we have previously prescribed 2 courses of Fortesta. Will renew his existing prescription, [place]. Assessment & Plan (06/05/2018 11:28 AM CDT): Patient near treatment range, with recent increase in testosterone application. Need to repeat his testosterone level, in particular related to his recent complaint of decreased libido. Obstructive sleep apnea of adult 12/29/2017 Assessment & Plan (11/05/2018 2:05 PM CDT): Continues on CPAP daily, with good effect. However, he is having some issues with his eyes and wonders if it is related to a leaky mask. 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 Assessment & Plan (06/05/2018 11:23 AM CDT): Patient using device appropriately, consistently by his report, with reasonable effect. Continue current treatment. Prediabetes 12/29/2017 Assessment & Plan (11/05/2018 2:09 PM CDT): A1c is increased from last measurement, to 5.4. Patient reports he has been out of metformin for the past month. He is interested in seeing where his A1c goes off metformin and would like to check this again prior to restarting. Will place an order for A1c in 2 months and make recommendations afterwards. Assessment & Plan (06/05/2018 11:29 AM CDT): Patient with history of prediabetes, wondering about possibility of increased blood sugars. Will check hemoglobin A1c at this time. 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 No indications of over or under replacement, as verified by lab work. Continue current treatment. Assessment & Plan (06/05/2018 11:26 AM CDT): Last TSH checked 3 months ago approximately and well within normal range. No signs or symptoms of over or under replacement. Continue current treatment. Essential hypertension Assessment & Plan (11/05/2018 2:07 PM CDT): Well controlled. 1. Medication: continue current medication regimen unchanged, encouraged home monitoring, call for persistent elevations at or above 130/85. 2. Recheck in 6 months, sooner should new symptoms or problems arise. Assessment & Plan (06/05/2018 11:24 AM CDT): Not quite optimally controlled at this time, at least during our visit. This, despite consistent use of amlodipine, metoprolol and perindopril. Continue to monitor, encourage monitoring at home. Reevaluate at follow-up. Check CMP today. Dyslipidemia Assessment & Plan (06/05/2018 11:27 AM CDT): Currently continues on simvastatin daily, without side effects. Due for repeat testing prior to upcoming cardiology visit. No treatment change. CAD (coronary artery disease) Assessment & Plan (11/05/2018 2:06 PM CDT): No anginal symptoms, chronic cough or exertional dyspnea. Continues on routine medications without side effects or intolerances. Follows with cardiology routinely. No treatment change at this time. Assessment & Plan (06/05/2018 11:24 AM CDT): Stable, continues to follow with cardiology routinely. No change to present treatment. Resolved Problems Problem Noted Date Diagnosed Date Resolved Date Angina pectoris 12/29/2017 05/17/2019 Assessment & Plan (11/05/2018 2:04 PM CDT): Stable, asymptomatic. Denies any use of nitroglycerin since our last visit. Continue current treatment. Assessment & Plan (06/05/2018 11:23 AM CDT): Stable, no anginal symptoms at this time. Continues on full strength aspirin daily, as needed nitroglycerin. Facial rash 12/29/2017 05/19/2018 Encounters Date Type Department Care Team Description 05/31/2024 10:52 AM CDT - 05/31/2024 11:59 PM CDT Hospital Encounter [facility] [id number] [id number] Phil Smith, Discharge Disposition: Home or Self Care (Routine Discharge) 05/31/2024 10:50 AM CDT - 05/31/2024 10:51 AM CDT Hospital Encounter [facility] [id number] [place] [id number] Grey Johnston, Discharge Disposition: Home or Self Care (Routine Discharge) 05/31/2024 Travel 05/31/2024 Orders Only [facility] [address] [place] [address] Phil Smith, 05/31/2024 Orders Only [facility] [address] [place] [address] Grey Johnston, from Last 3 Months Immunizations Name Administration Dates Next Due Fluzone High Dose - >Age 65 (Prefilled Syringe) 01/21/2019,01/21/2017,01/21/2016 Influenza (Generic) 01/01/2011, 7,02/20/2005,2002 Influenza Adult (Generic) 01/21/2019,01/01/2018, 01/05/2013 Pneumococcal (Pneumovax 23) 12/28/2019, 2 Pneumococcal (Prevnar 13) 01/21/2017 Family History Medical History Relation Comments No family history of premature coronary artery d isease. Other Relation Status Comments Other Social History Tobacco Use Types Packs/Day Years [...] file Not on file Not on file Last Filed Vital Signs Vital Sign Reading Time Taken Comments Blood Pressure 120/60 12/28/2023 10:37 AM CDT Pulse 63 12/28/2023 10:37 AM CDT Temperature 36.7 C (98 F) 05/17/2019 1:31 PM GARAGE HELPER Respiratory Rate 18 05/17/2019 1:31 PM GARAGE HELPER Oxygen Saturation 98% 05/17/2019 1:31 PM GARAGE HELPER Inhaled Oxygen Concentration - - Weight 104.3 kg (230 lb) 12/28/2023 10:37 AM CDT Height 177.8 cm (5' 10 ) 12/28/2023 10:37 AM CDT Body Mass Index 33 12/28/2023 10:37 AM CDT Plan of Treatment Upcoming Encounters Date Type Department Care Team (Late st Contact Info) Description 06/27/2024 11:45 AM CDT [facility] [address] [place] [phone] Chema Woodruff MD [facility]. [address] [address] Health Maintenance Due Date Last Done Comments ASCVD Statin 1943 DTaP, Tdap and Td Vaccines (1 - Tdap) 1962 Zoster Vaccines (1 of 2) 1993 AAA SCREENING 01/10/2008 Annual Medicare Wellness Visit 01/10/2008 RSV Immunization or 60+ Years (1 - 1-dose 75+ series) 2018 COVID-19 Vaccine (3 - season) 2023 06/22/2020, 06/01/2020 Influenza Adult (#1) 2023 01/21/2019, 01/21/2019, 01/01/2018, Additional history exists Pneumococcal Vaccine: 65+ Years Completed 12/28/2019, 01/21/2017, 04/23/2001 Meningococcal B Vaccine Aged Out No l onger eligible based on patient's age to complete this topic Meningococcal Vaccine Aged Out No deisy cheryle eligible based on patient's age to complete this topic RSV Immunizations Under 20 Months Aged Out No longer eligible based on patient's age to complete this topic Procedures Procedure Name Priority Date/Time Associated Diagnosis Comments URINALYSIS, AUTO, COMPLETE Routine 05/31/2024 11:10 AM CDT 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 Coronary atherosclerosis of [place] coronary artery Mixed hyperlipidemia Hypothyroidism Vitamin D deficiency Senile dementia, uncomplicated (CMS/HCC) CBC W/DIFF AUTOMATED Routine 05/31/2024 11:02 AM CDT Fatigue Coronary atherosclerosis of [place] coronary artery Encounter for screening for lipoid disorders Hypothyroidism Encounter for screening for other metabolic disorders LIPID PANEL Routine 05/31/2024 11:02 AM CDT Fatigue Coronary atherosclerosis of [place] coronary artery Encounter for screening for lipoid disorders Hypothyroidism Encounter for screening for other metabolic disorders THYROID STIM HORMONE TSH Routine 05/31/2024 11:02 AM CDT Fatigue Coronary atherosclerosis of [place] coronary artery Encounter for screening for lipoid disorders Hypothyroidism Encounter for screening for other metabolic disorders COMPREHENSIVE METABOLIC PANEL Routine 05/31/2024 11:02 AM CDT Fatigue Coronary atherosclerosis of [place] coronary artery Encounter for screening for lipoid disorders Hypothyroidism Encounter for screening for other metabolic disorders THYROXINE, FREE (FT4) Routine 05/31/2024 11:02 AM CDT Fatigue Coronary atherosclerosis of [place] coronary artery Encounter for screening for lipoid disorders Hypothyroidism Encounter for screening for other metabolic disorders FREE T3 Routine 05/31/2024 10:59 AM CDT 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 Coronary atherosclerosis of [place] coronary artery Mixed hyperlipidemia Hypothyroidism Vitamin D deficiency Senile dementia, uncomplicated (CMS/HCC) VITAMIN D, 25 OH Routine 05/31/2024 10:5 9 AM CDT 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 Coronary atherosclerosis of [place] coronary artery Mixed hyperlipidemia Hypothyroidism Vitamin D deficiency Senile dementia, uncomplicated (CMS/HCC) COMPREHENSIVE METABOLIC PANEL Routine 05/31/2024 10:59 AM CDT 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 Coronary atherosclerosis of [place] coronary artery Mixed hyperlipidemia Hypothyroidism Vitamin D deficiency Senile dementia, uncomplicated (CMS/HCC) VITAMIN B12 / FOLATE Routine 05/31/2024 10:59 AM CDT 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 Coronary atherosclerosis of [place] coronary artery Mixed hyperlipidemia Hypothyroidism Vitamin D deficiency Senile dementia, uncomplicated (CMS/HCC) CBC W/DIFF AUTOMATED Routine 05/31/2024 10:59 AM CDT 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 Coronary atherosclerosis of [place] coronary artery Mixed hyperlipidemia Hypothyroidism Vitamin D deficiency Senile dementia, uncomplicated (CMS/HCC) LIPID PANEL Routine 05/31/2024 10:59 AM CDT 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 Coronary atherosclerosis of [place] coronary artery Mixed hyperlipidemia Hypothyroidism Vitamin D deficiency Senile dementia, uncomplicated (CMS/HCC) THYROID STIM HORMONE TSH Routine 05/31/2024 10:59 AM CDT 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 Coronary atherosclerosis of [place] coronary artery Mixed hyperlipidemia Hypothyroidism Vitamin D deficiency Senile dementia, uncomplicated (CMS/HCC) from Last 3 Months Results * (ABNORMAL) URINALYSIS, AUTO, COMPLETE (05/31/2024 11:10 AM CDT) COLOR (U) YELLOW 05/31/2024 11:30 AM CDT [facility] TRANSPARENCY HAZY 05/31/2024 11:30 AM CDT [facility] SPECIFIC GRAVITY (U) >1.030(H) 1.000 - 1.030 05/31/2024 11:30 AM CDT [facility] U PH 5.5 5.0 - 9.0 05/31/2024 11:30 AM CDT [facility] LEUKOCYTES (U) NEGATIVE NEGATIVE 05/31/2024 11:30 AM T [facility] NITRITES NEGATIVE NEGATIVE 05/31/2024 11:30 AM T [facility] PROTEIN RANDOM (U) TRACE(A) NEGATIVE 05/31/2024 11:30 AM T [facility] GLUCOSE (U) NEGATIVE NEGATIVE 05/31/2024 11:30 AM T [facility] KETONES MG/DL (U) NEGATIVE NEGATIVE 05/31/2024 11:30 AM T [facility] BILIRUBIN (U) 1+(A) NEGATIVE 05/31/2024 11:30 AM T [facility] BLOOD (U) NEGATIVE NEGATIVE 05/31/2024 11:30 AM T [facility] WBC/HPF NONE SEEN 0 - 5 /HPF 05/31/2024 11:30 AM T [facility] RBC/HPF NONE SEEN 0 - 5 /HPF 05/31/2024 11:30 AM T [facility] EPI/HPF FEW /HPF 05/31/2024 11:30 AM T [facility] OTHER CASTS (U) MODERATE /LPF 11:30 AM T [facility] Comment:HYALINE URINE NAYAK FEW 05/31/2024 11:30 AM CDT [facility] Comment:MUCOUS URINE SPECIMEN OBTAINED BY CLEAN CATCH PROCEDURE / Unknown 05/31/2024 11:10 AM CDT us Phil Smith DO URINE ORDERABLES Final Resu lt [facility] [address] [place] [address], [place] [phone] * (ABNORMAL) COMPREHENSIVE METABOLIC PANEL (05/31/2024 11:02 AM CDT) Only the most recent of2 resultswithin the time period is included. [facility] GLUCOSE 133(H) 70 - 99 MG/DL 05/31/2024 12:33 PM CDT [facility] BUN 23(H) 7 - 18 MG/DL 05/31/2024 12:33 PM T [facility] CREATININE S/P/B 0.95 0.7 - 1.3 MG/DL 05/31/2024 12:33 PM T [facility] SODIUM S/P/B 141 136 - 145 MMOL/L 05/31/2024 12:33 PM T [facility] POTASSIUM S/P/B 4.1 3.5 - 5.1 MMOL/L 05/31/2024 12:33 PM T [facility] CHLORIDE S/P/B 104 100 - 108 MMOL/L 05/31/2024 12:33 PM T [facility] CO2 26.5 21 - 32 MMOL/L 05/31/2024 12:33 PM T [facility] CALCIUM S/P/B 9.7 8.5 - 10.1 MG/DL 05/31/2024 12:33 PM T [facility] BILIRUBIN TOTAL S/P/B 1.0 0.2 - 1.2 MG/DL 05/31/2024 12:33 PM T [facility] TOTAL PROTEIN S/P/B 7.4 6.4 - 8.2 G/DL 05/31/2024 12:33 PM T [facility] ALBUMIN S/P/B 3.8 3.4 - 5.0 G/DL 05/31/2024 12:33 PM T [facility] AST 21 15 - 37 U/L 05/31/2024 12:33 PM CDT [facility] ALT 33 16 - 60 U/L 05/31/2024 12:33 PM T [facility] ALKALINE PHOSPHATASE S/P/B 104 50 - 136 U/L 05/31/2024 12:33 PM T [facility] ANION GAP 10.5 5 - 15 MMOL/L 05/31/2024 12:33 PM T [facility] BUN CREATININE RATIO 24.2 6 - 26 05/31/2024 12:33 PM T [facility] A/G RATIO 1.1 1.0 - 2.0 RATIO 05/31/2024 12:33 PM T [facility] GFR ESTIMATE 80(L) >90 ML/MIN/1.7 3 M2 05/31/2024 12:33 PM T [facility] Comment: NOTE: eGFR is not calculated for patients <18 years of age or gender unknown. This is an estimated GFR calculation using the new CKD EPI creatinine equation without race and so does not require a correction factor for race. This estimated GFR should not be used for calculating drug doses. 05/31/2024 11:0 2 AM CDT Grey Johnston DO LABORATORY Final Result [facility] [address] [place] [address], * (ABNORMAL) LIPID PANEL (05/31/2024 11:02 AM CDT) Only the most recent of2 resultswithin the time period is included. CHOLESTEROL 177 <200.0 MG/DL 05/31/2024 12:33 PM CDT [facility] TRIGLYCERIDES 177(H) <150 MG/DL 05/31/2024 12:33 PM CDT [facility] HDL 56 >40.0 MG/DL 05/31/2024 12:33 PM CDT [facility] LDL (CALCULATED) 86 <100 MG/DL 05/31/2024 12:33 PM CDT [facility] NON HDL CHOLESTEROL 121 <130 MG/DL 05/31/2024 12:33 PM CDT [facility] CHOL/HDL RATIO 3.2 0.0 - 4.5 05/31/2024 12:33 PM CDT [facility] VLDL CALCULATION 35 5 - 55 MG/DL 05/31/2024 12:33 PM T [facility] LIPID INTERPRETATION 05/31/2024 12:33 PM CDT [facility] Comment: [facility] REPORT RECOMMENDATIONS: ADULT CHILD LOW RISK: CHOLESTEROL <200 <170 TRIGLYCERIDE <150 --- HDL >=60 --- LDL <100 <110 BORDERLINE: CHOLESTEROL 200-239 170-199 TRIGLYCERIDE 150-199 --- HDL 40-59 --- LDL 100-159 110-129 HIGH RISK: CHOLESTEROL >=240 >=200 TRIGLYCERIDE >=200 --- HDL <40 --- LDL >=160 >=130 05/31/2024 11:0 2 AM CDT Grey Johnston DO LABORATORY Final Result [facility] [address] [place] [address], * CBC W/DIFF AUTOMATED (05/31/2024 11:02 AM CDT) Only the most recent of2 resultswithin the time period is included. WBC 5.88 4.4 - 11.0 x10'3/uL 05/31/2024 11:29 AM CDT [facility] RBC 5.06 4.50 - 5.90 x10'6/uL 05/31/2024 11:29 AM CDT [facility] HGB 15.6 14.0 - 17.5 G/DL 05/31/2024 11:29 AM T [facility] HCT 46.2 41.5 - 50.4 % 05/31/2024 11:29 AM CDT [facility] MCV 91.3 80.0 - 96.0 FL 05/31/2024 11:29 AM CDT [facility] MCH 30.8 26.5 - 31.4 PG 05/31/2024 11:29 AM CDT [facility] MCHC 33.8 31.9 - 34.8 G/DL 05/31/2024 11:29 AM CDT [facility] RDW 13.3 12.3 - 14.3 % 05/31/2024 11:29 AM T [facility] PLT 212 151 - 353 x10'3/uL 05/31/2024 11:29 AM T [facility] MPV 10.4 9.7 - 11.9 FL 05/31/2024 11:29 AM T [facility] RBC MORPHOLOGY NORMAL 05/31/2024 11:29 AM T [facility] PLT MORPH. NORMAL 05/31/2024 11:29 AM T [facility] WBC MORPHOLOGY NORMAL 05/31/2024 11:29 AM T [facility] LYMPHOCYTES % 23.6 15.8 - 45.0 % 05/31/2024 11:29 AM T [facility] NEUTROPHILS % 61.9 42.1 - 71.9 % 05/31/2024 11:29 AM CDT [facility] MONOCYTES % 8.5 5.7 - 12.5 % 05/31/2024 11:29 AM CDT [facility] EOSINOPHILS 5.3 0.0 - 5.6 % 05/31/2024 11:29 AM CDT [facility] BASOPHILS 0.5 0.0 - 1.3 % 05/31/2024 11:29 AM CDT [facility] ABS. NEUTROPHILS 3.64 1.40 - 6.00 x10'3/uL 05/31/2024 11:29 AM CDT [facility] IMMATURE GRANS % 0.2 0.0 - 0.5 % 05/31/2024 11:29 AM CDT [facility] ABS. LYMPHOCYTES 1.39 0.80 - 4.70 x10'3/uL 05/31/2024 11:29 AM CDT [facility] 05/31/2024 11:0 2 AM CDT Grey Johnston DO LABORATORY Final Result [facility] [address] [place] [address], [place] [phone] * THYROXINE, FREE (FT4) (05/31/2024 11:02 AM CDT) FREE T4 0.84 0.76 - 1.46 NG/DL 05/31/2024 2:29 PM CDT [facility] 05/31/2024 11:0 2 AM CDT Grey Johnston DO LABORATORY Final Result [facility] [address] [place] [address], [place] [phone] * (ABNORMAL) THYROID STIM HORMONE TSH (05/31/2024 11:02 AM CDT) Only the most recent of2 resultswithin the time period is included. TSH 5.533(H) 0.358 - 3.74 uIU/ML 05/31/2024 12:33 PM CDT [facility] Comment: HIGH DOSES OF BIOTIN MAY INTERFERE WITH THIS TEST RESULT. CORRELATION TO CLINICAL HISTORY AND PRESENTATION RECOMMENDED. 05/31/2024 11:0 2 AM CDT us Grey Johnston DO LABORATORY Final Result Performing Organization Address [facility]/ZIP Co de Phone Number [facility] [address] [place] [address], [place] [phone] * VITAMIN B12 / FOLATE (05/31/2024 10:59 AM CDT) VITAMIN B12 S/P/B 632 193 - 986 PG/ML 05/31/2024 1:23 PM CDT [facility] FOLATE 13.5 8.6 - 58.9 NG/ML 05/31/2024 1:23 PM CDT [facility] 05/31/2024 10:5 9 AM CDT us Phil Smith DO LABORATORY Final Resul t Performing Organization Address [facility]/ZIP Co de Phone Number [facility] [address] [place] [address], [place] [phone] * FREE T3 (05/31/2024 10:59 AM CDT) FREE T3 2.7 2.18 - 3.98 PG/ML 05/31/2024 4:13 PM CDT [facility] 05/31/2024 10:5 9 AM CDT us Phil B Yablonsky DO LABORATORY Final Resul t [facility] [address] [place] [address], [place] [phone] * VITAMIN D, 25 OH (05/31/2024 10:59 AM CDT) VITAMIN D 25 HYDROXY S/P/B 35 30 - 100 NG/ML 05/31/2024 12:25 PM CDT [facility] Comment: INTERPRETATION DEFICIENT <20 INSUFFICIENT 20-29 SUFFICIENT 30-100 05/31/2024 10:5 9 AM CDT Phil Smith DO LABORATORY Final Resul t [facility] [address] [place] [address], [place] [phone] from Last 3 Months Insurance [employer] [facility] MEDICARE [employer] MEDICARE [facility] Advance Directives * Full Code (Latest Code Status on File) Date Activated Date Inactivated Comments 11/10/2017 11:51 AM 11/10/2017 5:44 PM Care Teams Household Appliances Service Technician Relationship Specialty Start Date End Date Chema Woodruff MD [facility]. [address] [address] [place] Windows Systems Engineer CARDIOVASCULAR DISEASE 08/22/15
--- OUTSIDE RECORDS SUMMARY | 2024-06-22 00:43 | XMS_ITS | Encounter Summary ---
Author Organization [facility] Address [address] [place] [id number] Care Team Providers Care Risk Engineer Name Role Phone Chema Woodruff MD Unavailable [phone] Fredi Soliman MD Primary Care Provider [phone] Encounter Details Date Type Department Care Team (Late Contact Info) Description 05/31/2020 Abstract [facility], [place], [address] [address] Donna Servin MA Social History Tobacco Use [...] file Not on file Not on file COVID-19 Exposure Response Date Recorded In the last month, have you been in contact with someone who was confirmed or suspected to have Coronavirus / COVID-19? Unable to assess 05/21/2020 12:54 PM ENERGY INFRASTRUCTURE ENGINEER documented as of this encounter Plan of Treatment Upcoming Encounters Date Type Department Care Team (Late Contact Info) Description 06/27/2024 11:45 AM CDT Office Visit [facility] [address] [place] [id number] Chema Woodruff MD [facility]. [address] [address] documented as of this encounter Procedures Procedure Name Priority Date/Time Associated Diagnosis Comments COMPREHENSIVE METABOLIC PANEL Routine 03/26/2020 LIPID PANEL Routine 03/26/2020 THYROID STIM HORMONE TSH Routine 03/26/2020 documented in this encounter Results * THYROID STIM HORMONE, TSH (03/26/2020) Pathologist [facility] TSH 2.660 03/26/2020 us Doc [facility] Final Result * LIPID PANEL (03/26/2020) Pathologist [facility] CHOLESTEROL 183 HDL 50 TRIGLYCERIDES 205 LDL (CALCULATED) 100 03/26/2020 us Doc [facility] Final Result * COMPREHENSIVE METABOLIC PANEL (03/26/2020) SODIUM S/P/B 140 POTASSIUM S/P/B 4.8 CO2 22 CHLORIDE S/P/B 101 GLUCOSE 114 mg/dL CALCIUM S/P/B 10.1 BUN 20 CREATININE S/P/B 1.06 0.7 - 1.3 EGFR AFR. AMER. 78 <=90 EGFR NON-AFR. AMER. 67 <=90 ALKALINE PHOSPHATASE S/P/B 90 ALT 32 AST 25 BILIRUBIN TOTAL S/P/B 1.0 ALBUMIN S/P/B 4.7 3.5 - 5.0 TOTAL PROTEIN S/P/B 7.4 GLOBULIN 2.7 03/26/2020 us Doc [facility] Final Result documented in this encounter Visit Diagnoses Not on filedocumented in this encounter Care Teams Risk Engineer Relationship Specialty Start Date End Date Fredi Soliman MD [address] [place] [id number] PCP - General INTERNAL MEDICINE 08/18/19 11/20/21 Chema Woodruff MD [facility]. [address] [address] [employer] Builder CARDIOVASCULAR DISEASE 08/22/15 documented as of this encounter
[2024-06-22 12:13] VITALS: BP 115/76; PULSE 74; RESP 18; TEMP 36.1; O2SAT 96
[2024-06-22] MEDS: LACTATED RINGERS 1,000 ML 150 ML IV CONT (12:20)
--- NOTE | 2024-06-22 12:47 | P.HP_ITS ---
H&P: HPI History of Present Illness Date/Time: 06/22/24 12:47 Chief Complaint: History of colon polyps Narrative: The patient has a history of colonic polyps, the last colonoscopy was in 2020, finding for small cecal polyps. Review of Systems Review of Systems: All systems reviewed & are unremarkable except as noted in HPI and below PMFSH Past Medical History Medical History Hx of myocardial infarction Benign essential hypertension CAD in [place] artery Dementia, unspecified, without behavioral disturbance Hypertensive heart disease without congestive heart failure Hypothyroidism (acquired) Mixed hyperlipidemia Primary osteoarthritis involving multiple joints Sleep apnea, unspecified Spinal stenosis, lumbar region with neurogenic claudication Surgical History Surgical History History of coronary artery stent placement Coronary angioplasty status Family History Family History Mother Hypertension Family history of diabetes mellitus in first degree relative Social History Social History (Reviewed 05/30/24 @ 13:02 by Cesilia Earl [facility]) Smoking packs per day: 3 Smoking cigarettes per day: 60.0 Years smoked: 25 Smoking pack-years: 75.00 Smoking status: Former smoker Tobacco type: cigarettes Second hand tobacco smoke exposure: No Smoking end date: 05/06/80 Alcohol intake: never Alcohol use details: ONE BEER PER MONTH Substance use: never Substance use type: does not use Lack of Transportation: No Lack of Food: Never True Current Housing: I Have Housing Concerned About Future Housing: No Difficulty Paying Gas/Electric Bills: No Difficulty Paying for Meds: No Currently Unemployed: No Education: Associate Degree Difficulty w/ Childcare or Family Care: No Living arrangements: with family Spiritual care concerns: No Meds Home Medications and Allergies Home Medications ?Medication ?Instructions ?Recorded ?Confirmed ?Type cyanocobalamin (vitamin B-12) 1,000 mcg PO DAILY 08/16/19 06/22/24 History 1,000 mcg tablet (Vitamin B-12) cholecalciferol (vitamin D3) 50 50 mcg PO DAILY 01/02/22 06/22/24 History mcg (2,000 unit) capsule ketoconazole 2 % shampoo 1 applic topical .prn 01/02/22 06/13/24 History lifitegrast 5 % eye drops in a 1 drp EACH EYE BID 01/02/22 06/22/24 History dropperette (Xiidra) triamcinolone acetonide 0.1 % 1 applic topical BID Rash #80 grams 07/10/22 06/22/24 Rx topical cream ibuprofen 800 mg tablet 800 mg PO BID #180 tabs 10/26/23 06/22/24 Rx nitroglycerin 400 mcg/spray 1 spray translingual Q5M PRN Chest 10/26/23 06/13/24 Rx translingual Pain #12 grams montelukast 10 mg tablet 10 mg PO DAILY #90 tabs 12/31/23 06/22/24 Rx aspirin 325 mg tablet 325 mg PO DAILY #90 tabs 03/15/24 06/22/24 Rx amlodipine 10 mg tablet 10 mg PO DAILY #90 tabs 05/30/24 06/22/24 Rx atorvastatin 40 mg tablet 40 mg PO DAILY #90 tabs 05/30/24 06/22/24 Rx memantine ER 28 mg-donepezil 10 mg 1 cap PO HS #90 ea 05/30/24 06/22/24 Rx capsule sprinkle,ext.release 24 hr (Namzaric) perindopril erbumine 8 mg tablet 8 mg PO DAILY #90 tabs 05/30/24 06/22/24 Rx levothyroxine 75 mcg tablet 75 mcg PO DAILY #90 tabs 06/07/24 06/22/24 Rx (Levoxyl) trazodone 100 mg tablet 100 mg PO .nightly 06/13/24 06/22/24 History Allergies Allergy/AdvReac Type Severity Reaction Status Date / Time No Known Allergies Allergy Verified 06/22/24 12:11 Vital Signs Vital Signs - 24 hr 06/22/24 12:13 Temperature 97 F L Pulse Rate 74 Respiratory Rate 18 Blood Pressure 115/76 Pulse Oximetry 96 Oxygen Delivery Room Air Exam Const: General: cooperative and healthy appearing Resp: Effort & Inspection: normal respiratory effort and able to speak in complete sentences Auscultation: clear to auscultation bilaterally Cardio: Rate: regular rate Rhythm: regular rhythm GI: Inspection: normal to inspection GI Palp: No No hepatosplenomegaly present Auscultation: normal bowel sounds Rectal Exam: deferred Skin: General skin exam: normal color Psych: Appearance: grossly normal Mental Status: mental status grossly normal Assessment and Plan Assessment and plan (1) Colon cancer screening: Code(s): Z12.11 - Encounter for screening for malignant neoplasm of colon Status: Acute Assessment and Plan: The patient is deemed a good candidate for the procedure. Consent signed. Will proceed.
--- NOTE | 2024-06-22 12:50 | P.PNAN_ITS ---
Anes - Initial Pre Proc Eval Procedure: Operation Date: 06/22/24 13:00 Proposed Procedures p Colonoscopy - Jeancarlos Hirsch MD Date/Time: 06/22/24 12:50 Surgeon: Jeancarlos Hirsch MD Pre Op Diagnosis: hx of colon polyps Patient Data Age: 79 Gender: M Height: 1.78 m Weight: 103.3 kg Last Vital Signs Temp 36.1 C L 06/22/24 12:13 Pulse 74 06/22/24 12:13 Resp 18 06/22/24 12:13 BP 115/76 06/22/24 12:13 Pulse Ox 96 06/22/24 12:13 O2 Del Method Room Air 06/22/24 12:13 Allergies Allergy/AdvReac Type Severity Reaction Status Date / Time No Known Allergies Allergy Verified 06/22/24 12:11 Home Medications ?Medication ?Instructions ?Recorded ?Confirmed ?Type cyanocobalamin (vitamin B-12) 1,000 mcg PO DAILY 08/16/19 06/22/24 History 1,000 mcg tablet (Vitamin B-12) cholecalciferol (vitamin D3) 50 50 mcg PO DAILY 01/02/22 06/22/24 History mcg (2,000 unit) capsule ketoconazole 2 % shampoo 1 applic topical .prn 01/02/22 06/13/24 History lifitegrast 5 % eye drops in a 1 drp EACH EYE BID 01/02/22 06/22/24 History dropperette (Xiidra) triamcinolone acetonide 0.1 % 1 applic topical BID Rash #80 grams 07/10/22 06/22/24 Rx topical cream ibuprofen 800 mg tablet 800 mg PO BID #180 tabs 10/26/23 06/22/24 Rx nitroglycerin 400 mcg/spray 1 spray translingual Q5M PRN Chest 10/26/23 06/13/24 Rx translingual Pain #12 grams montelukast 10 mg tablet 10 mg PO DAILY #90 tabs 12/31/23 06/22/24 Rx aspirin 325 mg tablet 325 mg PO DAILY #90 tabs 03/15/24 06/22/24 Rx amlodipine 10 mg tablet 10 mg PO DAILY #90 tabs 05/30/24 06/22/24 Rx atorvastatin 40 mg tablet 40 mg PO DAILY #90 tabs 05/30/24 06/22/24 Rx memantine ER 28 mg-donepezil 10 mg 1 cap PO HS #90 ea 05/30/24 06/22/24 Rx capsule sprinkle,ext.release 24 hr (Namzaric) perindopril erbumine 8 mg tablet 8 mg PO DAILY #90 tabs 05/30/24 06/22/24 Rx levothyroxine 75 mcg tablet 75 mcg PO DAILY #90 tabs 06/07/24 06/22/24 Rx (Levoxyl) trazodone 100 mg tablet 100 mg PO .nightly 06/13/24 06/22/24 History Patient hx anesthesia problems: none Family hx anesthesia problems: none Results Review: All pre-operative results and documents have been reviewed as part of the pre- operative evaluation. [facility] Past Medical History Medical History Hx of myocardial infarction Benign essential hypertension CAD in [place] artery Dementia, unspecified, without behavioral disturbance Hypertensive heart disease without congestive heart failure Hypothyroidism (acquired) Mixed hyperlipidemia Primary osteoarthritis involving multiple joints Sleep apnea, unspecified Spinal stenosis, lumbar region with neurogenic claudication Surgical History Surgical History History of coronary artery stent placement Coronary angioplasty status Family History Family History Mother Hypertension Family history of diabetes mellitus in first degree relative Social History Social History Smoking packs per day: 3 Smoking cigarettes per day: 60.0 Years smoked: 25 Smoking pack-years: 75.00 Smoking status: Former smoker Tobacco type: cigarettes Second hand tobacco smoke exposure: No Smoking end date: 05/06/80 Alcohol intake: never Alcohol use details: ONE BEER PER MONTH Substance use: never Substance use type: does not use Lack of Transportation: No Lack of Food: Never True Current Housing: I Have Housing Concerned About Future Housing: No Difficulty Paying Gas/Electric Bills: No Difficulty Paying for Meds: No Currently Unemployed: No Education: Associate Degree Difficulty w/ Childcare or Family Care: No Living arrangements: with family Spiritual care concerns: No Anes - Eval Final PreProcedure Day of Procedure 06/22/24 12:50 Patient weight: obese Heart: regular rate and rhythm Lungs: clear to auscultation Airway: Mallampati scale class II Last oral intake: >/= 8 hours ASA classification: III Emergent: no Anesthetic plan: proceed Anesthesia type and monitoring: general GIVS and standard monitoring Results Review: All pre-operative results and documents have been reviewed as part of the pre- operative evaluation. Informed Consent: The patient's anesthetic plan and its attendant risks and benefits were discussed with the patient/family/POA. Questions were solicited and answers provided to the satisfaction of the patient/family/POA.
[2024-06-22 13:14] VITALS: BP 136/71; PULSE 61; RESP 18; O2SAT 98
[2024-06-22 13:24] VITALS: BP 138/77; PULSE 60; RESP 18; O2SAT 96
[2024-06-22 13:36] VITALS: BP 154/87; PULSE 60; RESP 18; O2SAT 97
== END 2024-06-22 13:54 | disposition home or self-care (01) ==
PROVIDERS: PCP Internal Medicine; Referring Provider Internal Medicine Gastroenterology; Visit Provider Internal Medicine Gastroenterology
PROC: 0DJD8ZZ Inspection of Lower Intestinal Tract, Via Natural or Artificial Opening Endoscopic (ICD-10-PCS; CPT 45378; principal; 2024-06-22 13:00)
DX: Z12.11 Encounter for screening for malignant neoplasm of colon (principal); I11.9 Hypertensive heart disease without heart failure; I25.2 Old myocardial infarction; I25.10 Atherosclerotic heart disease of native coronary artery without angina pectoris; E03.9 Hypothyroidism, unspecified; E78.2 Mixed hyperlipidemia; M15.0 Primary generalized (osteo)arthritis; G47.30 Sleep apnea, unspecified; M48.062 Spinal stenosis, lumbar region with neurogenic claudication; F03.90 Unspecified dementia, unspecified severity, without behavioral disturbance, psychotic disturbance, mood disturbance, and anxiety; E66.9 Obesity, unspecified; Z68.32 Body mass index [BMI] 32.0-32.9, adult; Z79.1 Long term (current) use of non-steroidal anti-inflammatories (NSAID); Z79.82 Long term (current) use of aspirin; Z98.890 Other specified postprocedural states; Z95.5 Presence of coronary angioplasty implant and graft; Z87.891 Personal history of nicotine dependence; Z86.0100 Personal history of colon polyps, unspecified
CPT/HCPCS: G0105; J2003; J2704; J7120

== ENCOUNTER 2024-10-17 14:00 | Outpatient (RCR) | payer MEDICARE, BC, OTHER, SELFPAY ==
--- NOTE | 2024-10-05 13:58 | PTOPEVAL1 ---
Assessment and note entered by Charlotte Callejas, PT Evaluation Information Assessment Status Evaluation Diagnosis dorsalgia unspec ICD-10 Condition Codes (PT) Pain in low back M54.50,Weakness R53.1 Other ICD-10 Condition Codes ( M25.60 Stiffness unspecified joint PT) Subjective Information Pt reports saw therapy for his back before and this helped. Would do heat and exercise and e-stim . No stretching table, no massage, About 6 months ago pain came back. Had MRI 01/2023 multiple levels of degeneration, disc bulge, stenosis central and foraminal, multiple levels of anterior and retrolisthesis Pain in right lower leg but not like back Reported Pain Level Pain Score 5: Self Report Additional Pain Score Comments Aggravating factors: Standing and walking Alleviating factors: medications Assessment PT Clinical Summary Pt presents with complaints of back pain that appears chronic in nature. Chart review shows MRI from 01/2023 with multiple levels of severe deficit including disc bulges, stenosis both central and foraminal, and alignment issues with anterolisthesis and retrolisthesis. Evaluation shows decreased lumbar ROM, decreased flexibility, decreased lumbopelvic core strength overall. Pt will benefit from physical therapy to address deficits, reduce pain, and allow for improved function for longer periods of time to meet patient goals. Plan of Care Interventions Electrical Stimulation,Hot Pack/Cold Pack,Manual Therapy,Neuro Re-education,Patient/Caregiver Education,Therapeutic Activities,Therapeutic Exercise,Self-Care/Home Management,Other Other Interventions Bracing PT Services Indicated Yes Treatment Frequency and 1-2x weekly x 16 visits Duration These treatments will address the objective and functional deficits as defined above. The patient will be advanced safely and appropriately in order for the patient to progress towards his/her prior level of function. Additional exercises will be introduced and as well as a comprehensive home exercise program upon discharge, if needed, ?to ensure carryover of functional gains achieved in the clinic. This treatment plan has been reviewed and agreement upon by the patient.
--- NOTE | 2024-10-05 13:58 | OPREHPOC ---
Outpatient Therapy Plan of Care This is a Multidisciplinary Plan of Care that may contain components documented by all disciplines (PT, OT, and ST.) PT Problem 1 PT Problem #1 Knowledge Deficit PT Goal 1 Goal / Goal Update Pt will report performing HEP at least 50% of the time with or without spouse assist Target Visit 8 PT Problem 2 PT Problem #2 Pain PT Goal 1 Goal / Goal Update Pt will report highest pain level at 6/10 for reduction of discomfort Target Visit 8 PT Goal 2 Goal / Goal Update Pt will report highest pain level at 3/10 with activities to allow improved function. PT Problem 3 PT Problem #3 Impaired Strength PT Goal 1 Goal / Goal Update Pt will show TRAM activation with tactile and verbal cueing for improved lumbopelvic strength and awareness Target Visit 8 PT Goal 2 Goal / Goal Update Pt will demonstrate gluteal strength of 3+/5 for improved lumbar support
--- NOTE | 2024-10-12 11:22 | PCPTNOTE ---
Pt called and cancelled his therapy appt today and did not give a reason
--- NOTE | 2024-10-19 13:50 | PCPTNOTE ---
Pt cancelled appointment this date due to being sick. Computer Operator offered an appointment slot this Thursday, but pt declined offer.
--- NOTE | 2024-10-24 15:36 | PCPTNOTE ---
Pt called the front window cashier to cancel physical therapy appointment this date due to having chest pains. concrete form setter and finisher made pt aware of attendance policy as this is the pt's 3rd cancel in a row.
--- NOTE | 2024-10-26 14:25 | PCPTNOTE ---
Pt no showed his physical therapy appointment this date. Pt has had 3 consecutive cancels and no showed today. Called pt to remind him about the attendance policy and will be discharging from PT.
--- NOTE | 2024-10-31 11:30 | PCPTNOTE ---
Admitting Provider: Attending Provider: Phil Smith DO Patient:Ramirez Charles Date of :1945 Patient no-showed his first eval appt, cancelled his second evaluation appt, attended his third evaluation appt. He then attended one visit, cancelled the next three visits, and no-showed his fourth visit. He was reminded of the attendance policy multiple times. Patient has not returned for any further treatments since 10/17/2024, therefore he will be discharged at this time due to nonattendance. Patient?s initial visit was on 10/05/2024 13:00 and he had a total of 2 visits. The goals have not been met.
== END 2024-11-03 08:17 | disposition home or self-care (01) ==
LOC: ANHHIPT 14:00
PROVIDERS: PCP Internal Medicine; Visit Provider Internal Medicine
DX: M54.9 Dorsalgia, unspecified (principal)
CPT/HCPCS: 97014; 97110; 97162; G0283